=== PATIENT | female | born 1960 | race Caucasian/White ===

== ENCOUNTER 2017-03-11 19:23 | Emergency (ER) | payer BC ==
[~2017-03-11] VITALS: Ht 165.1 cm; Wt 86.4 kg
[~2017-03-11 19:23] MED LIST: ALPR-138 PO; ASPI81 PO; LISI2.5T3 PO; NUVAMIS PV; OXYB5TAB33 PO; THYR30 PO
[2017-03-11 19:26] VITALS: BP 152/79; PULSE 105; RESP 16; TEMP 98.8; O2SAT 95
--- NOTE | 2017-03-12 21:14 | PD ---
Physical Exam Date Seen by Provider: Mar 11, 2017 Time Seen by Provider: 22:32 Narrative 57 year old female presents to the emergency department for evaluation of HTN for 10 days, cold feet for 5 days, vomiting x1 today at 3pm. She states that she now feels nauseated and lightheaded as well as headache and sore throat. Data Data Last Documented VS Vital Signs Date Time Temp Pulse Resp B/P (MAP) Pulse Ox O2 Delivery O2 Flow Rate FiO2 03/11/17 19:26 98.8 105 16 152/79 (103) 95 Room Air MDM Supervised Visit with MARJ: No Narrative Course 57 year old female presents to the emergency department for multiple complaints. Patient is initially seen in triage. She left AMA before she could be moved to a medical bed. Diagnosis Primary Impression: Left against medical advice Disposition: 07 AGAINST MEDICAL ADVICE Sheila Moore Mar 12, 2017 21:14
== END 2017-03-11 22:32 | disposition left against medical advice (07) ==
LOC: NED 19:23
DX: I10 Essential (primary) hypertension (principal)
CPT/HCPCS: 99281